=== PATIENT | female | born 1975 | race Two or more races ===

== ENCOUNTER 2021-08-17 11:37 | Emergency (ER) | payer OTHER ==
[~2021-08-17] VITALS: Ht 160 cm; Wt 75.3 kg
[2021-08-17] MEDS ORDERED: DICLOFENAC SODI75 MG PO (16:38)
== END 2021-08-17 17:08 | disposition home or self-care (01) ==
LOC: ER 11:37
DX: R07.89 Other chest pain (principal); M32.9 Systemic lupus erythematosus, unspecified; M35.00 Sjogren syndrome, unspecified; M79.7 Fibromyalgia